=== PATIENT | male | born 1940 | race Caucasian/White ===

== ENCOUNTER 2021-02-23 13:07 | Emergency (ER) | payer MEDICARE ==
[~2021-02-23] VITALS: Ht 172.7 cm; Wt 80.0 kg
[2021-02-23] MEDS ORDERED: RAMIPRIL2.5 MG PO (13:58)
[2021-02-23] MEDS ORDERED: ZOCOR10 MG PO (13:58)
[2021-02-23] MEDS ORDERED: METFORMIN500 M2 PO (13:59)
[2021-02-23] MEDS ORDERED: HYDROCHLOROTH12.5 M1 PO (13:59)
[2021-02-23] MEDS ORDERED: TRAMADOL HCL50 MG PO (13:59)
[2021-02-23] MEDS ORDERED: [UNRECOGNIZED DRUG - OTHER] (13:59)
[2021-02-23] MEDS ORDERED: MEDDOSEPAK PO (14:02)
[2021-02-23] MEDS ORDERED: ULTRAM50 M1 PO (14:02)
[2021-02-23 14:09] VITALS: BP 110/66
== END 2021-02-23 14:10 | disposition home or self-care (01) ==
LOC: ED 13:07
DX: G89.29 Other chronic pain (principal); M25.511 Pain in right shoulder; E11.9 Type 2 diabetes mellitus without complications; I10 Essential (primary) hypertension; Z79.84 Long term (current) use of oral hypoglycemic drugs